=== PATIENT | male | born 1940 | race Caucasian/White ===

== ENCOUNTER 2016-07-07 10:58 | Outpatient (CLI) | payer MEDICARE, OTHER ==
[2016-07-07] VITALS (7 sets, daily range): BP systolic 119–138; BP diastolic 54–62; PULSE 53–64; RESP 16–18; TEMP 96.4–97.6; O2SAT 92–96; Ht 170.2 cm; Wt 124.2 kg
[~2016-07-07] VITALS: Ht 170.2 cm; Wt 124.2 kg
[~2016-07-07 10:58] MED LIST: ATOR10TA33 PO; DIPH25CA84 PO; HYDR-4246 PO; LISI-1 PO; OMEP-29 PO; TAMS0.4C46 PO; WARF5TAB69 PO
--- NOTE | 2016-07-07 11:00 | NUR ---
ARRIVAL pt arrived to medical unit at 1100, via ambulatory. vitals were taken and entered. pt was assessed and made comfortable. pt on room air. is present.
[2016-07-07] MEDS ORDERED: FINA5TAB42 PO (11:40)
[2016-07-07] MEDS ORDERED: ACET-3088 PO (11:42)
[2016-07-07 12:02] LABS: INR 1.08 (0.76-1.04); PROTHROMBIN TIME 11.8 SEC (9.31-12.49)
[2016-07-07] MEDS ORDERED: IOHEXOL 300 MG/ML 50ml INJECTION ONE (12:48)
[2016-07-07] MEDS ORDERED: LIDOCAINE 1% (10mg/ml) 5ml VIAL ONE (13:29)
--- NOTE | 2016-07-07 14:28 | DI ---
Indication: ITS.REASON: RADICULOPATHY PROCEDURE: CT MYELOGRAM LUMBAR SPINE: Encounter: Initial Comparison: None Technique: Axial CT imaging through the lumbar spine was performed after the administration of intrathecal contrast. The myelogram injection is described in a separate procedural report. Coronal and sagittal two-dimensional reformats. Automated Exposure Control and Iterative Reconstruction dose reducing techniques were utilized. Findings: Alignment of the lumbar spine shows minimal scoliosis. No acute fracture identified. There is good opacification of the central spinal canal with myelographic contrast. Conus medullaris terminates normally at L1. The paraspinal soft tissues show no acute findings. Segmental analysis: T12-L1: Normal L1-L2: No significant disk herniation, central canal or neural foraminal stenosis. L2-L3: Disk height loss with vacuum disk phenomenon and small osteophytes contributing to moderate to severe central canal stenosis. Degenerative facet disease. Central calcified disk osteophyte complex. Mild left neural foraminal stenosis. No significant right foraminal narrowing. L3-L4: Degenerative facet disease with a small disk protrusion contributes to mild to moderate central canal stenosis. Mild bilateral neural foraminal stenosis. L4-L5: Disk height loss with degenerative facet disease and a right foraminal disk osteophyte complex contributing to moderate central canal stenosis. Bony impingement on the right neural foramen causing severe neural foraminal stenosis and impingement on the exiting right L4 nerve root. Severe left neural foraminal stenosis also at this level. L5-S1: Mild degenerative facet change. No focal disk herniation or significant central canal stenosis. No neural foraminal narrowing. Impression: Degenerative disk and facet disease with areas of central canal and neural foraminal narrowing as above. .
--- NOTE | 2016-07-07 16:02 | DI ---
INDICATION: ITS.REASON: RADICULOPATHY Ordering physician:Fabricio Gooden MD Procedure:MYELOGRAM LUMBAR INJECTION FOR CT MYELOGRAM: The procedure including the benefits, risks, and alternatives were explained in detail to the patient. All of their questions were answered. He stated that he understood and wished to proceed. Informed consent was obtained. A preprocedural timeout was performed to confirm the correct patient and procedure. Using sterile technique, local Xylocaine anesthesia, and fluoroscopic guidance throughout, an attempt at advancing a 22-gauge spinal needle at the L3-4 level was performed. I was unable to access the subarachnoid space at this level. The needle was removed. A new 22 G spinal needle was advanced from a posterior approach into the subarachnoid space at the L4-5 level. A fluoroscopic image was then obtained and archived. Removal of the stylet showed clear colorless CSF. 15 cc of Omnipaque 300 was slowly instilled within the intrathecal space. The needle was then removed. Fluoroscopic images were then obtained. Following this, the patient was transferred to the CT department for their scan. Please see the separate CT report. Impression: Successful intrathecal contrast injection for a CT lumbar myelogram. Fluoroscopy dose: 56.07 mGy (Cumulative air kerma) Raul Haas RPA/PRIYA performed this under my personal supervision. .
== END 2016-07-07 16:32 | disposition home or self-care (01) ==
LOC: IMA 10:58 → MED 10:58 → IMA 16:32
PROVIDERS: ATTEND Radiology Diagnostic Radiology
DX: M48.06 Spinal stenosis, lumbar region (principal); M47.26 Other spondylosis with radiculopathy, lumbar region; M47.27 Other spondylosis with radiculopathy, lumbosacral region; M51.16 Intervertebral disc disorders with radiculopathy, lumbar region; I35.9 Nonrheumatic aortic valve disorder, unspecified
CPT/HCPCS: 36415; 62304; 72132; 85049; 85610; Q9967